=== PATIENT | male | born 1960 | race Caucasian/White ===

== ENCOUNTER 2017-06-30 08:25 | Day surgery (SDC) | payer OTHER ==
[2017-06-30] MEDS: NEPAFENAC 0.1% 3 ML OPH OPER (09:08)
[2017-06-30] MEDS: CYCLOPENTOLATE 2% 2 ML OPH OPER (09:08)
[2017-06-30] MEDS: MOXIFLOXACIN 0.5% 3 ML OPH OPER (09:08)
[2017-06-30] MEDS: PHENYLephrine 10% 5 ML OPH OPER (09:08)
[2017-06-30] MEDS ORDERED: MEPERIDINE 25 MG INJ IV (09:30)
[2017-06-30] MEDS ORDERED: OXYCODONE/ACETAMINOPHEN (5/325) TAB PO ×2 (09:30)
[2017-06-30] MEDS ORDERED: METOCLOPRAMIDE 10 MG INJ IV (09:30)
[2017-06-30] MEDS ORDERED: EPHEDrine SULFATE 50 MG/5 ML SYG IV (09:30)
[2017-06-30] MEDS ORDERED: DIPHENHYDRAMINE 50 MG INJ IV (09:30)
[2017-06-30] MEDS ORDERED: MIDAZOLAM 1 MG/ML 2 ML INJ IV (09:30)
[2017-06-30] MEDS ORDERED: LABETALOL HCL 20MG INJ IV (09:30)
[2017-06-30] MEDS ORDERED: ONDANSETRON 4 MG INJ IV (09:30)
[2017-06-30] MEDS ORDERED: FENTAnyl 50 MCG/ML VIAL IV ×3 (09:30)
[2017-06-30] MEDS ORDERED: hydrALAzine 20 MG INJ IV (09:30)
[2017-06-30] MEDS ORDERED: LIDOCAINE 100 MG SYRINGE (09:51)
[2017-06-30] MEDS ORDERED: PROPOFOL 20 ML (09:51)
[2017-06-30] MEDS ORDERED: ONDANSETRON 4 MG INJ (10:08)
== END 2017-06-30 12:09 | disposition home or self-care (01) ==
LOC: SDS 08:25
DX: H25.11 Age-related nuclear cataract, right eye (principal)
CPT/HCPCS: 66984